=== PATIENT | male | born 1980 | race Caucasian/White ===

== ENCOUNTER 2018-12-10 09:11 | Emergency (ER) | payer MEDICAID, OTHER ==
[~2018-12-10] VITALS: Ht 177.8 cm; Wt 81.8 kg
[~2018-12-10 09:11] MED LIST: CLIN150C2 PO; CLIN150C8 PO; CYCL-1 PO; HYDR-4383 PO
[2018-12-10 09:36] VITALS: BP 132/83
[2018-12-10] MEDS ORDERED: dexamethasone 0.5 mg/5ml unit-dose oral solution PO STA (10:46)
[2018-12-10] MEDS ORDERED: ketorolac trometh inj. 60 MG/2 ML VIAL IM ONE (10:50)
[2018-12-10] MEDS ORDERED: dexamethasone sod phosphate 10mg/ml inj PO STA (10:53)
[2018-12-10] MEDS ORDERED: dexamethasone 4mg tablet PO ONE (11:00)
[2018-12-10] MEDS ORDERED: dexamethasone sod phosphate 10mg/ml inj IV STA (11:10)
== END 2018-12-10 11:18 | disposition home or self-care (01) ==
LOC: ER 09:11
DX: M54.9 Dorsalgia, unspecified (principal); F12.90 Cannabis use, unspecified, uncomplicated; Z98.890 Other specified postprocedural states; Z88.0 Allergy status to penicillin; Z88.1 Allergy status to other antibiotic agents; Z79.899 Other long term (current) drug therapy
CPT/HCPCS: 96372; 96374; 99283; J1100; J1885; J8540

== ENCOUNTER 2018-12-22 08:50 | Emergency (ER) | payer OTHER ==
[~2018-12-22] VITALS: Ht 177.8 cm; Wt 86.0 kg
[2018-12-22 08:56] VITALS: BP 128/84
--- NOTE | 2018-12-22 09:39 | NUR ---
US at bedside
== END 2018-12-22 10:07 | disposition home or self-care (01) ==
LOC: ER 08:51
DX: M79.661 Pain in right lower leg (principal); M79.89 Other specified soft tissue disorders; F12.90 Cannabis use, unspecified, uncomplicated; F17.200 Nicotine dependence, unspecified, uncomplicated; Z88.0 Allergy status to penicillin; Z88.1 Allergy status to other antibiotic agents; Z79.899 Other long term (current) drug therapy
CPT/HCPCS: 76881; 99284

== ENCOUNTER 2019-02-06 16:23 | Emergency (ER) | payer OTHER ==
[~2019-02-06] VITALS: Ht 177.8 cm; Wt 86.4 kg
[2019-02-06] MEDS ORDERED: METH-360 PO (16:59)
[2019-02-06] MEDS ORDERED: IBUP-1985 PO (16:59)
[2019-02-06] MEDS ORDERED: ketorolac tromethamine 15mg/ml inj. IM ONE (17:00)
[2019-02-06] MEDS ORDERED: orphenadrine citrate 60mg/2ml inj. IM ONE (17:00)
[2019-02-06 17:13] VITALS: BP 127/108
== END 2019-02-06 17:13 | disposition home or self-care (01) ==
LOC: ER 16:24
DX: S29.012A Strain of muscle and tendon of back wall of thorax, initial encounter (principal); F12.90 Cannabis use, unspecified, uncomplicated; F17.200 Nicotine dependence, unspecified, uncomplicated; Z90.89 Acquired absence of other organs; Z88.0 Allergy status to penicillin; Z88.1 Allergy status to other antibiotic agents; Z79.899 Other long term (current) drug therapy; V49.88XA Car occupant (driver) (passenger) injured in other specified transport accidents, initial encounter; Y93.89 Activity, other specified; Y92.488 Other paved roadways as the place of occurrence of the external cause; Y99.8 Other external cause status
CPT/HCPCS: 96372; 99284; J1885; J2360

== ENCOUNTER 2019-02-12 10:42 | Emergency (ER) | payer OTHER ==
[~2019-02-12] VITALS: Ht 172.7 cm; Wt 86.0 kg
[~2019-02-12 10:42] MED LIST changes: +IBUP-1985 PO; +METH-360 PO
[2019-02-12 10:52] VITALS: BP 119/83
--- NOTE | 2019-02-12 11:24 | NUR ---
PATIENT LYING ON GURNEY. STATES HE INJURED HIS BACK LAST WEEK AND WAS SEEN IN THE ER FOR MEDICATIONS THAT HELPED TEMPORARILY. WOKE UP THIS MORNING WITH SEVERE BACK PAIN RETURNING. RATES PAIN 10/10.
[2019-02-12] MEDS ORDERED: HYDROcodone/acetaminophen 5mg/325mg tablet PO ONE (12:05)
[2019-02-12] MEDS ORDERED: LIDOcaine 5% patch TP ONE (12:05)
[2019-02-12] MEDS ORDERED: triamcinolone acetonide 40mg/ml inj IM ONE (12:05)
[2019-02-12] MEDS ORDERED: acetaminophen 325mg tablet PO ONE (12:05)
[2019-02-12] MEDS ORDERED: ACET-2615 PO (12:08)
[2019-02-12] MEDS ORDERED: LIDO700A32 TOP (12:08)
--- NOTE | 2019-02-12 12:32 | NUR ---
NORCO TABLET DID NOT SCAN, SO ENTERED INTO EMAR MANUALLY.
== END 2019-02-12 12:34 | disposition home or self-care (01) ==
LOC: ER 10:42
DX: M54.5 Low back pain (principal); G89.29 Other chronic pain; F12.90 Cannabis use, unspecified, uncomplicated; Z98.890 Other specified postprocedural states; Z88.0 Allergy status to penicillin; Z88.1 Allergy status to other antibiotic agents; Z79.2 Long term (current) use of antibiotics; Z79.899 Other long term (current) drug therapy
CPT/HCPCS: 99284; J3301

== ENCOUNTER 2019-02-15 10:06 | Emergency (ER) | payer OTHER ==
[~2019-02-15] VITALS: Ht 172.7 cm; Wt 87.0 kg
[~2019-02-15 10:06] MED LIST changes: +ACET-2615 PO; +LIDO700A32 TOP
[2019-02-15 10:20] VITALS: BP 134/82
[2019-02-15] MEDS ORDERED: ketorolac tromethamine 15mg/ml inj. IM ONE (10:45)
[2019-02-15] MEDS ORDERED: orphenadrine citrate 60mg/2ml inj. IM ONE (10:45)
[2019-02-15] MEDS ORDERED: HYDR-3965 PO (10:48)
== END 2019-02-15 11:08 | disposition home or self-care (01) ==
LOC: ER 10:07
DX: M54.5 Low back pain (principal); G89.29 Other chronic pain; F12.90 Cannabis use, unspecified, uncomplicated; Z98.890 Other specified postprocedural states; Z88.0 Allergy status to penicillin; Z88.8 Allergy status to other drugs, medicaments and biological substances; Z79.899 Other long term (current) drug therapy
CPT/HCPCS: 96372; 99283; J1885; J2360

== ENCOUNTER 2019-03-10 10:29 | Emergency (ER) | payer SELFPAY ==
[~2019-03-10] VITALS: Ht 175.3 cm; Wt 82.5 kg
[~2019-03-10 10:29] MED LIST changes: +HYDR-3965 PO
[2019-03-10 11:28] VITALS: BP 136/83
[2019-03-10] MEDS ORDERED: cyclobenzaprine 10mg tablet PO ONE (12:20)
[2019-03-10] MEDS ORDERED: ketorolac tromethamine 15mg/ml inj. IM ONE (12:20)
[2019-03-10] MEDS ORDERED: CYCL-1 PO (12:20)
== END 2019-03-10 12:41 | disposition home or self-care (01) ==
LOC: ER 10:29
DX: G89.29 Other chronic pain (principal); M54.5 Low back pain; F12.90 Cannabis use, unspecified, uncomplicated; Z98.890 Other specified postprocedural states; Z88.0 Allergy status to penicillin; Z88.1 Allergy status to other antibiotic agents; Z79.2 Long term (current) use of antibiotics; Z79.899 Other long term (current) drug therapy
CPT/HCPCS: 96372; 99283; J1885

== ENCOUNTER 2019-04-04 23:11 | Emergency (ER) | payer OTHER ==
[~2019-04-04] VITALS: Ht 175.3 cm; Wt 78.4 kg
[~2019-04-04 23:11] MED LIST changes: -ACET-2615 PO; -HYDR-3965 PO
--- NOTE | 2019-04-04 23:42 | NUR ---
PATIENT LAYING QUITELY WITH HIS EYES CLOSED, AFTER I INITIATED CONTACT HE STARTED MOANIGN "OH GOD " AND CRYING
[2019-04-05] MEDS ORDERED: ketorolac tromethamine 15mg/ml inj. IM ONE
[2019-04-05 01:06] VITALS: BP 120/62
== END 2019-04-05 01:00 | disposition home or self-care (01) ==
LOC: ER 23:12
DX: G43.909 Migraine, unspecified, not intractable, without status migrainosus (principal); F15.10 Other stimulant abuse, uncomplicated; G89.29 Other chronic pain; F12.90 Cannabis use, unspecified, uncomplicated; Z98.890 Other specified postprocedural states; Z88.0 Allergy status to penicillin; Z88.1 Allergy status to other antibiotic agents; Z79.899 Other long term (current) drug therapy
CPT/HCPCS: 96372; 99283; J1885